=== PATIENT | male | born 1960 | race Caucasian/White ===

== ENCOUNTER 2017-01-31 20:01 | Emergency (ER) | payer OTHER ==
[~2017-01-31] VITALS: Ht 177.8 cm; Wt 88.5 kg
[2017-01-31 20:10] VITALS: BP 136/89
[2017-01-31 20:57] LABS: BASOPHIL COUNT 0.1 K/uL (0-0.1); EOSINOPHIL (%) 3.4 % (0-5); EOSINOPHIL COUNT 0.2 K/uL (0-0.3); HEMATOCRIT 40.2 % (38.0-50.0); IMMATURE GRANULOCYTE (%) 0.6 % (0.0-0.7); INSTRUMENT ABS NEUTROPHIL CT 2.4 K/uL; LYMPHOCYTE COUNT 2.3 K/uL (1.0-2.8); MCH 32.3 PG (29.0-34.0); MCHC 34.3 G/DL (30.0-36.0); MCV 94.1 FL (86-99); MEAN PLAT.VOLUME 9.1 uM^3 (9.0-12.4); MONOCYTE (%) 8.8 % (3-12); MONOCYTE COUNT 0.5 K/uL (0-0.8); NEUTROPHIL (%) 44.4 % (45-76); NEUTROPHIL COUNT 2.4 K/uL (1.8-6.4); PLATELET COUNT 228 K/uL (156-360); RBC DIS.WIDTH-CV 11.9 % (11.8-14.6); RBC DIS.WIDTH-SD 41.1 % (39-53); RED BLOOD COUNT 4.27 M/uL (4.00-5.50); WHITE BLOOD COUNT 5.4 K/uL (4.1-10.2)
[2017-01-31 21:13] LABS: CHLORIDE 102 mEq/L (99-109); POTASSIUM 4.3 mEq/L (3.7-5.4); SODIUM 134 mEq/L (136-147)
[2017-01-31 21:15] LABS: GLUCOSE 95 mg/dL (70-99)
[2017-01-31 21:16] LABS: ANION GAP 9 MEQ/L (2-14)
[2017-01-31 21:17] LABS: TOTAL BILIRUBIN 0.4 mg/dL (0.0-1.0)
[2017-01-31 21:18] LABS: ALKALINE PHOSPHATASE 63 IU/L (3-129)
[2017-01-31 21:19] LABS: GFR ESTIMATE (CALCULATED) > 59 mL/min/
[2017-01-31 21:20] LABS: UREA NITROGEN (BUN) 13 mg/dL (9-23)
== END 2017-01-31 22:22 | disposition left against medical advice (07) ==
LOC: EME 20:01
PROVIDERS: Physician Assistant
DX: K92.0 Hematemesis (principal); F10.10 Alcohol abuse, uncomplicated; I10 Essential (primary) hypertension; F17.200 Nicotine dependence, unspecified, uncomplicated
CPT/HCPCS: 80048; 80053; 85025; 85027; 86900; 86901; 99281; 99283